=== PATIENT | male | born 1955 | race Caucasian/White ===

== ENCOUNTER → 2019-05-03 14:09 | Outpatient (BNVA) | payer OTHER, SELFPAY | PROVIDERS: Family Provider Physician Assistant; PCP Physician Assistant | DX: I48.91 Unspecified atrial fibrillation (principal) | CPT/HCPCS: 85610 ==

== ENCOUNTER → 2019-06-04 11:04 | Outpatient (BNVA) | payer OTHER, SELFPAY | PROVIDERS: Family Provider Family Medicine; PCP Physician Assistant; Visit Provider Internal Medicine Cardiovascular Disease | DX: I48.91 Unspecified atrial fibrillation (principal) | CPT/HCPCS: 85610 ==

== ENCOUNTER 2019-06-12 08:37 | Day surgery (SDC) | payer OTHER, SELFPAY ==
[2019-06-11 08:07] VITALS: BMI 30.4
--- NOTE | 2019-06-12 09:17 | P.ANESASSM_ITS ---
Pre-Anesthetic Assessment Pre-Anesthetic Assessment: Height/Weight: Height 1.93 m Weight 113.398 kg Proposed Procedure: Operation Date: 06/12/19 10:00 Proposed Procedures p Colonoscopy 89693 R19.5(Not Applicable) - Raimundo Vizcaino MD Familial anesthetic complications: none Social: Social History: No alcohol and No tobacco Exam: Pre-Anes Outpt Exam: alert, oriented x 3, clear to auscultation bilaterally and regular rate & rhythm Airway: Submandibular: WNL Cervical ROM: WNL MP: 2 Dentition: Other (teeth ok) History/ROS: No significant history except as noted Pulmonary: Pulmonary: Asthma CV/HEM: CV/HEM: Afib, CAD (2015 stent) and HTN : : None reported Hepatic: Hepatic: None reported GI: GI: GERD (occ) Metabolic: Metabolic: DM, Hyperlipidemia and Morbid obesity Musc/skel: Musc/skel: None reported Anesthetic Plan: ASA status: 3 Anesthesia: Anesthesia Evaluation and MAC Risk of > 500 ml blood loss (7ml/kg in children): No PFSH Anesthesia PFSH: Medical History Atrial fibrillation Diabetes Hemorrhoid History of retinal detachment Hypertension Myocardial infarct Positive colorectal cancer screening using Cologuard test Surgical History History of carpal tunnel release of both wrists History of cataract extraction History of coronary artery stent placement History of hemorrhoidectomy History of oral surgery [place] Family History Other Cancer Denies family history of Anesthesia complication Bleeding disorder Social History Smoking and tobacco status: never smoked Second hand smoke exposure: No Alcohol intake: never Desire information about substance/drug rehabilitation?: No Adopted: Yes Caregiver/support person: No Lives independently: Yes Household members: spouse Housing: House Marital status: Highest education level completed: High School Graduate service: No Current occupational status: retired Current occupational exposures/hazards: No Pets and animals: No History of recent travel: No Leisure activites: hunting and fishing Sexually active: No Current gender identity: Male Claudia/Zoroastrianism: Pentecostal Special claudia needs: No Agree to transfusion: No Financial difficulty paying for basics: Decline to Answer Data Anesthesia Cardiac Studies: No Data to Display
[2019-06-12 09:44] VITALS: BP 134/81; PULSE 71; RESP 20; TEMP 36.1; O2SAT 90
--- NOTE | 2019-06-12 09:56 | W.PM.OPSUD ---
Surgery/Procedure H&P Update DATE OF PROCEDURE: June 12, 2019 DATE H&P PERFORMED: 05/18/19 H&P UPDATE INFORMATION: H&P completed within last 30 days and No changes to prior documentation PREOP DIAGNOSIS: Screening colonoscopy PLANNED PROCEDURE: Operation Date: 06/12/19 10:00 Proposed Procedures p Colonoscopy 68192 R19.5(Not Applicable) - Raimundo Vizcaino MD
[2019-06-12 10:14] LABS: Glucose Point of Care 168 mg/dL (70-110)
[2019-06-12 10:30] VITALS: BP 106/80; PULSE 79; RESP 16; TEMP 36.1; O2SAT 95
[2019-06-12] MEDS: sodium chloride 0.9% 1,000 ML 30 ML IV (10:34)
[2019-06-12 10:35] VITALS: BP 112/82; PULSE 73; RESP 16; O2SAT 96
--- NOTE | 2019-06-12 10:40 | ANE.PACU2 ---
 Inpatient post-anesthesia follow up: Airway intact: Yes Vital signs: Temperature 97.0 F Pulse Rate 73 Respiratory Rate 16 Blood Pressure 112/82 Pulse Oximetry 96 Oxygen Delivery Me thod Room Air Oxygen Flow Rate 2 Fraction of Inspir ed Oxygen Hydration adequate: Yes Nausea and vomiting: No Pain level: 1 Mental status: Baseline
== END 2019-06-12 10:55 | disposition home or self-care (01) ==
PROVIDERS: Family Provider Family Medicine; PCP Physician Assistant; Visit Provider Surgery
PROC: 0DJD8ZZ Inspection of Lower Intestinal Tract, Via Natural or Artificial Opening Endoscopic (ICD-10-PCS; CPT 45378; principal; 2019-06-12 10:00)
DX: Z12.11 Encounter for screening for malignant neoplasm of colon (principal); D12.5 Benign neoplasm of sigmoid colon; D12.8 Benign neoplasm of rectum; Z79.82 Long term (current) use of aspirin; E11.9 Type 2 diabetes mellitus without complications; Z79.4 Long term (current) use of insulin; Z79.01 Long term (current) use of anticoagulants; I48.91 Unspecified atrial fibrillation; I10 Essential (primary) hypertension; I25.2 Old myocardial infarction; R19.5 Other fecal abnormalities; Z95.5 Presence of coronary angioplasty implant and graft
CPT/HCPCS: 12345; 36416; 45385; 82962; 88305; J7030

== ENCOUNTER → 2019-06-26 10:34 | Outpatient (BNVA) | payer OTHER, SELFPAY | PROVIDERS: Family Provider Family Medicine; PCP Physician Assistant; Visit Provider Internal Medicine Cardiovascular Disease | DX: I48.91 Unspecified atrial fibrillation (principal) | CPT/HCPCS: 85610 ==

== ENCOUNTER → 2019-08-06 08:44 | Outpatient (BNVA) | payer OTHER, SELFPAY | PROVIDERS: Family Provider Family Medicine; PCP Physician Assistant; Visit Provider Internal Medicine Cardiovascular Disease | DX: I48.91 Unspecified atrial fibrillation (principal) | CPT/HCPCS: 85610 ==

== ENCOUNTER → 2019-09-04 08:58 | Outpatient (BNVA) | payer OTHER, SELFPAY | PROVIDERS: Family Provider Family Medicine; PCP Physician Assistant; Visit Provider Internal Medicine Cardiovascular Disease | DX: I48.91 Unspecified atrial fibrillation (principal) | CPT/HCPCS: 85610 ==

== ENCOUNTER → 2019-11-27 11:01 | Outpatient (BNVA) | payer OTHER, SELFPAY | PROVIDERS: Family Provider Family Medicine; PCP Physician Assistant; Visit Provider Internal Medicine Cardiovascular Disease | DX: I48.11 Longstanding persistent atrial fibrillation (principal) | CPT/HCPCS: 85610 ==

== ENCOUNTER → 2020-01-01 08:41 | Outpatient (BNVA) | payer OTHER, SELFPAY | PROVIDERS: Family Provider Family Medicine; PCP Physician Assistant; Visit Provider Internal Medicine Cardiovascular Disease | DX: I48.11 Longstanding persistent atrial fibrillation (principal) | CPT/HCPCS: 85610 ==

== ENCOUNTER → 2020-01-29 09:49 | Outpatient (BNVA) | payer OTHER, SELFPAY | PROVIDERS: Family Provider Family Medicine; PCP Physician Assistant; Visit Provider Internal Medicine Cardiovascular Disease | DX: I48.11 Longstanding persistent atrial fibrillation (principal) | CPT/HCPCS: 85610 ==

== ENCOUNTER 2020-06-25 14:51 | Outpatient (CLI) | payer MEDICARE, SELFPAY | END 2020-06-25 14:52 | disposition home or self-care (01) | LOC: WOUND 14:52 | PROVIDERS: Family Provider Family Medicine; PCP Physician Assistant; Visit Provider Thoracic Surgery (Cardiothoracic Vascular Surgery) | DX: L84 Corns and callosities (principal) | CPT/HCPCS: G0463; L3260 ==